=== PATIENT | female | born 1965 | race Caucasian/White ===

== ENCOUNTER 2016-09-30 09:40 | Day surgery (SDC) | payer BC ==
--- NOTE | ~2016-09-30 | EGD ---
EGD REPORT [facility] [address] [address] NAME: NANCY YI : 63 STATUS : REG [facility]#: [id number] AGE: 51 ADM/REG DATE : 09/30/16 MR#: [id number] REPORT SERV DATE: 09/30/16 DICTATED BY: JOSEPH NOEL DATE: 09/30/16 REPORT STATUS : Draft TRANSCRIBED BY: [employer] DATE: 09/30/16 [facility] Center Patient Name: Nancy Yi Date of : 1965 Attending MD: JOSEPH NOEL MD Procedure Date No Time: 09/30/2016 Procedure: Colonoscopy Indications: Screening for colorectal malignant neoplasm Referring MD: LILIAN MALDONADO Medicines: as per anesthesia Complications: No immediate complications. Procedure: Pre-Anesthesia Assessment: - ASA Grade Assessment: II - A patient with mild systemic disease. After I obtained informed consent, the scope was passed under direct vision. Throughout the procedure, the patient's blood pressure, pulse, and oxygen saturations were monitored continuously. The PCF [id number] was introduced through the anus and advanced to the cecum, identified by appendiceal orifice and ileocecal valve. The colonoscopy was performed without difficulty. The patient tolerated the procedure. The quality of the bowel preparation was adequate to identify polyps. Findings: The perianal and digital rectal examinations were normal. Internal hemorrhoids were found during endoscopy and were mild. Impression: - Internal hemorrhoids. Recommendation: - Repeat colonoscopy in 10 years for surveillance. Procedure Code(s): --- Professional --- 91441, Colonoscopy, flexible, proximal to splenic flexure; diagnostic, with or without collection of specimen(s) by brushing or washing, with or without colon decompression (separate procedure) Diagnosis Code(s): --- Professional --- K64.8, Other hemorrhoids Z12.11, Encounter for screening for malignant neoplasm of colon CPT copyright 2013 [employer]. All rights reserved. EGD REPORT [facility] [address] [address] NAME: NANCY YI : 63 STATUS : REG [facility] PAT#: [id number] AGE: 51 ADM/REG DATE : 09/30/16 MR#: [id number] REPORT SERV DATE: 09/30/16 DICTATED BY: JOSEPH NOEL DATE: 09/30/16 REPORT STATUS : Draft TRANSCRIBED BY: [employer] DATE: 09/30/16 The codes documented in this report are preliminary and upon electric razor mechanic review may be revised to meet current compliance requirements. JOSEPH NOEL MD 09/30/2016 12:01 PM This report has been signed electronically. Number of Addenda: 0 Note Initiated On: 09/30/2016 11:07 AM Scope Withdrawal Time 0 hours 7 minutes 12 seconds [address] [address]
--- NOTE | ~2016-09-30 | EGD ---
EGD REPORT [facility] [address] [address] NAME: NANCY YI : 63 STATUS : REG [facility]#: [id number] AGE: 51 ADM/REG DATE : 09/30/16 MR#: [id number] REPORT SERV DATE: 09/30/16 DICTATED BY: JOSEPH NOEL DATE: 09/30/16 REPORT STATUS : Draft TRANSCRIBED BY: [employer] DATE: 09/30/16 [facility] Patient Name: Nancy Yi Date of : 1965 Attending MD: JOSEPH NOEL MD Procedure Date No Time: 09/30/2016 Procedure: Upper GI endoscopy Indications: Heartburn, Suspected esophageal reflux Referring MD: LILIAN MALDONADO Medicines: as per anesthesia Complications: No immediate complications. Procedure: Pre-Anesthesia Assessment: - ASA Grade Assessment: II - A patient with mild systemic disease. After obtaining informed consent, the endoscope was passed under direct vision. Throughout the procedure, the patient's blood pressure, pulse, and oxygen saturations were monitored continuously. The GIF H190 [id number] was introduced through the mouth, and advanced to the body of the stomach. The upper GI endoscopy was accomplished without difficulty. The patient tolerated the procedure. Findings: There were esophageal mucosal changes suspicious for long-segment Tam's esophagus present in the middle third of the esophagus and in the lower third of the esophagus. The maximum longitudinal extent of these mucosal changes was 5 cm in length. Mucosa was biopsied with a cold forceps for histology randomly at intervals of 2.5 cm in the middle third of the esophagus and in the lower third of the esophagus. A total of 2 specimen bottles were sent to pathology. A medium-sized hiatus hernia was present. due to hernia and gastric anatomy scope would not pass distally Impression: - Esophageal mucosal changes suspicious for long-segment Tam's esophagus. Biopsied. - Hiatus hernia. Recommendation: - Await pathology results. - Follow an antireflux regimen. - Continue present medications. - Do an upper GI series. Procedure Code(s): --- Professional --- 98143, 51, Esophagogastroduodenoscopy, flexible, EGD REPORT [facility] [address] [place]. [address] NAME: NANCY YI : 63 STATUS : REG [facility] PAT#: [id number] AGE: 51 ADM/REG DATE : 09/30/16 MR#: [id number] REPORT SERV DATE: 09/30/16 DICTATED BY: JOSEPH NOEL DATE: 09/30/16 REPORT STATUS : Draft TRANSCRIBED BY: [employer] DATE: 09/30/16 transoral; with biopsy, single or multiple Diagnosis Code(s): --- Professional --- K22.9, Disease of esophagus, unspecified K44.9, Diaphragmatic hernia without obstruction or gangrene R12, Heartburn CPT copyright 2013 [employer]. All rights reserved. The codes documented in this report are preliminary and upon chopper gun operator review may be revised to meet current compliance requirements. JOSEPH NOEL MD 09/30/2016 11:42 AM This report has been signed electronically. Number of Addenda: 0 Note Initiated On: 09/30/2016 11:06 AM Scope Withdrawal Time 0 hours 0 minutes 0 seconds [address] [place] [address]
[~2016-09-30 09:40] MED LIST: ASAB PO; B121000P SC; FOLIC PO; IBU800 PO; LEVOTHYROXIN50 MCG PO; PREV30 PO
== END 2016-09-30 23:59 | disposition home or self-care (01) ==
LOC: DMU 09:40
PROVIDERS: Internal Medicine Gastroenterology
PROC: 0DJD8ZZ Inspection of Lower Intestinal Tract, Via Natural or Artificial Opening Endoscopic (ICD-10-PCS; principal; 2016-09-30 11:00)
DX: Z12.11 Encounter for screening for malignant neoplasm of colon (principal); K64.8 Other hemorrhoids; K22.9 Disease of esophagus, unspecified; K44.9 Diaphragmatic hernia without obstruction or gangrene; R12 Heartburn; E03.9 Hypothyroidism, unspecified; K21.9 Gastro-esophageal reflux disease without esophagitis; Z88.0 Allergy status to penicillin; Z90.710 Acquired absence of both cervix and uterus; Z79.899 Other long term (current) drug therapy; Z79.82 Long term (current) use of aspirin; Z79.1 Long term (current) use of non-steroidal anti-inflammatories (NSAID)
CPT/HCPCS: 88305